=== PATIENT | female | born 1960 | race Caucasian/White ===

== ENCOUNTER → 2022-12-28 | Outpatient (CLI) | payer SELFPAY ==
--- NOTE | 2022-12-28 | IMM_PTH ---
PATIENT: SHARON BAUER LOC: [facility] U#:[id number] AGE/SX: 62/F ROOM: RE12/28/[address]: LASHAY Jo : 1960 BED: DIS: 12/28/2022 SPEC #: [id number] RECD: 12/30/22 13:00 STATUS: TIA REQ #: [id number] MAXIMUS: 12/28/22 00:[address]: Nanette Christensen NP DEPT: IMMUNOHISTOCHEMISTRY RECD BY: Vi Pritchard ENTERED: 12/30/22 13:02 SP TYPE: IMMUNO OTHR DR: CHIP Wilcox Tissues: Endometrium, NOS Procedures: MSH2 (add) MLH-1 (add) MSH6 (add) Anti-PMS2 (add) HER2 SHARATH (add) P53 (add) KI-67 (initial) PHYSICIAN & INSTITUTION [facility] [phone] SPECIMEN INFORMATION: Tissue Source: Endometrium Clinical Info: Postmenopausal bleeding Specimen Number: [id number] CPT code: 49862, 55736 x6 METHODOLOGY: Deparaffinized sections of prefer/formalin-fixed tissue or PAP/DQ stained slides are incubated with monoclonal/polyclonal antibodies/oligonucleotide probes. Localization is made via biotin free immunoperoxidase method. Appropriate controls are performed and reacted as expected. Results on target cell population are indicated in the following table: RESULTS: ANTIBODY / CLONE RESULT Her-2neu (CB11) negative (0) MLH-1 (M1) positive MSH2 (25D12) positive MSH6 (44) positive PMS2 (KKH6913) positive Ki-67 (30-9) positive, low P53 (DO-7) positive, focal (wild type pattern) These tests were developed and their performance characteristics determined by [facility]. They may not have been cleared or approved by the [place]. Food and Drug Administration. The FDA has determined that such clearance or approval is not necessary. The above immunohistochemical/dualISH markers are ordered and reviewed by the Pathologist. INTERPRETATION: Endometrial biopsy: Endometrial adenocarcinoma. Result of Microsatellite Instability Study: Negative (no loss of mismatch protein; no microsatellite instability detected). KARINA:jyothi 01/02/2023
--- NOTE | 2022-12-28 14:00 | EMB_PTH ---
PATIENT: SHARON BAUER LOC: [facility] U#:[id number] AGE/SX: 62/F ROOM: RE12/28/[address]: LASHAY Jo : 1960 BED: DIS: 12/28/2022 SPEC #: [id number] RECD: 12/28/22 16:45 STATUS: TIA RERenata #: [id number] MAXIMUS: 12/28/22 14:[address]: Nanette Christensen NP DEPT: SURGICAL PATHOLOGY RECD BY: Lolita Panchal ENTERED: 12/29/22 09:05 SP TYPE: ENDOM BX/C ENIO DR: CHIP Wilcox Tissues: Endometrium, NOS Procedures: Surgery Specimen Level IV HEADER OPERATION: Endometrial biopsy PRE-OP DIAGNOSIS: Postmenopausal bleeding TISSUE SUBMITTED: Uterine lining MICROSCOPIC DIAGNOSIS Endometrial biopsy: Endometrial adenocarcinoma, endometrioid type, FIGO grade I. See comment. SJ:jyothi 12/30/2022 COMMENT Immunohistochemistry ([id number]) for microsatellite instability (mismatch repair of protein) will be performed and the results will be reported separately. Case has been reviewed in consultation with Dr. Thomas who concurs with the above diagnosis. IDC:AM MICROSCOPIC DESCRIPTION Slides are reviewed. GROSS DESCRIPTION Received is one container labeled with the patient's name and not further designated. The specimen consists of multiple irregular fragments of brown soft tissue mixed with mucoid tissue that in aggregate measure 3.0 x 2.5 x 0.3 cm. The specimen is totally submitted in one cassette. / SJ:jyothi 12/29/2022 TC:0 CPT: 22709
== END | disposition home or self-care (01) ==
PROVIDERS: PCP Physician Assistant; Referring Provider Nurse Practitioner Women's Health; Visit Provider Nurse Practitioner Women's Health
DX: N95.0 Postmenopausal bleeding (principal)
CPT/HCPCS: 88305; 88341; 88342